=== PATIENT | female | born 1990 | race Caucasian/White ===

== ENCOUNTER → 2023-04-14 07:42 | Outpatient (REF) | payer OTHER, SELFPAY | LOC: HWRAD 07:42 | PROVIDERS: ATTENDING PHYSICIAN Internal Medicine Gastroenterology; REFERRING PHYSICIAN Student in an Organized Health Care Education/Training Program | DX: R14.0 Abdominal distension (gaseous) (principal); N94.6 Dysmenorrhea, unspecified | CPT/HCPCS: 76700; 76830; 76856 ==